=== PATIENT | female | born 2005 | race Caucasian/White ===

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

== ENCOUNTER 2024-05-16 18:34 | Outpatient (REF) | payer BC, SELFPAY ==
[2024-05-17 11:32] LABS: Hemoglobin S Screen Negative (Negative)
== END 2024-05-16 18:35 | disposition home or self-care (01) ==
LOC: LBN 18:34
PROVIDERS: PCP Nurse Practitioner Family; Visit Provider Physician Assistant
DX: Z02.5 Encounter for examination for participation in sport (principal)
CPT/HCPCS: 85660

== ENCOUNTER 2025-06-20 15:36 | Outpatient (CLI) | payer BC, SELFPAY ==
--- NOTE | 2025-06-20 15:44 | DI.RAD_ITS ---
Exam(s) XR KNEE LT 4V AP,LAT,LUKE,PAT EXAM: XR KNEE LT 4V AP,LAT,LUKE,PAT CLINICAL HISTORY: evaluate pathology, L KNEE PAIN, [id number]. TECHNIQUE: 2D digital imaging was performed. Four views. COMPARISON: CR XR knee RT 3V AP,lat,luke from 07/03/2018 FINDINGS: BONES: No acute fracture is present. No bony destructive lesion is seen. JOINTS: The knee is normally aligned. The joint spaces are maintained. No joint effusion is seen. SOFT TISSUE: Normal. IMPRESSION: Normal radiographs of the left knee. DATA REPOSITORY: RADIATION DOSE DELIVERED:
== END 2025-06-20 15:56 ==
LOC: DI 15:37
PROVIDERS: PCP Nurse Practitioner Family; Visit Provider Nurse Practitioner Family
DX: M25.562 Pain in left knee (principal)
CPT/HCPCS: 73564